=== PATIENT | female | born 1965 | race Caucasian/White ===

== ENCOUNTER → 2018-03-14 08:25 | Outpatient (CLI) | payer OTHER, SELFPAY ==
--- NOTE | 2018-03-14 | DI.US.S_ITS ---
PROCEDURE: US ABDOMEN COMPLETE INDICATIONS: RIGHT UPPER QUADRANT PAIN TECHNIQUE: Real-time scanning was performed of the abdominal and retroperitoneal organs, with image documentation. COMPARISON: None. FINDINGS: Liver: The liver is mildly enlarged with increased echogenicity. Gallbladder: Gallbladder demonstrates multiple mobile areas of increased echogenicity without wall thickening. Biliary ducts: Intrahepatic bile ducts are non-dilated. Extrahepatic bile duct caliber measures 4.8 mm. Normal is 6-7 mm or less in diameter, or 10 mm or less post-cholecystectomy. Pancreas: Visualized portions of the pancreas are sonographically normal. Spleen: Spleen is normal in size and homogeneous in echotexture. Kidneys: Kidneys are normal in size and echotexture. Right kidney measures 11.3 cm long; left kidney measures 11.3 cm long. No hydronephrosis or nephrolithiasis. No solid masses. Aorta: Visualized aorta is normal in caliber at less than 3 cm. Iliacs: Proximal common iliac arteries are not well seen IVC: Intrahepatic inferior vena cava is patent. Miscellaneous: No free abdominal fluid. IMPRESSION: 1. Hepatomegaly with steatosis. 2. Cholelithiasis without imaging evidence of cholecystitis. Dictated by: Marisela Baltazar M.D. on 03/14/2018 at 14:38 Approved by: Marisela Baltazar M.D. on 03/14/2018 at 14:46
[2018-03-14 10:20] LABS: Add Manual Diff / Slide Review NO; Basophils Percent Auto 0.9 % (0-2); Eosinophils Percent Auto 2.3 % (2-4); Hematocrit 38.9 % (36-46); Hemoglobin 12.9 g/dL (12.0-16.0); Lymphocytes Percent Auto 31.2 % (25-40); Mean Corpuscular HGB Conc 33.2 % (30-36); Mean Corpuscular Hemoglobin 27.2 PG (26-34); Mean Corpuscular Volume 82.1 fL (80-100); Monocytes Percent Auto 7.9 % (3-14); Neutrophils Absolute Auto 4000 /uL (3000-5900); Neutrophils Percent Auto 57.7 % (50-75); Platelet Count 261 X10^3/uL (150-400); Red Blood Cell Count 4.74 X10^6/uL (4.0-5.2); Red Cell Distribution Width 14.3 % (11.6-14.8); White Blood Cell Count 6.9 X10^3/uL (4.5-11.0)
[2018-03-14 11:22] LABS: Alanine Aminotransferase 41 IU/L (9-52); Albumin 4.3 g/dL (3.5-5.0); Albumin Globulin Ratio 1.3 (1.0-2.8); Alkaline Phosphatase 81 U/L (38-126); Aspartate Aminotransferase 30 IU/L (14-36); Bilirubin Total 0.5 mg/dL (0.2-1.3); Blood Urea Nitrogen 12 mg/dL (7-17); Calcium 9.4 mg/dL (8.4-10.2); Carbon Dioxide 31 mmol/L (22-32); Chloride 103 mmol/L (98-107); Cholesterol 249 mg/dL (140-199); Estimated Glomerular Filt Rate > 60.0 mL/min (>60); Globulin 3.2 g/dL (1.7-4.1); Glucose 123 mg/dL (70-100); HDL Cholesterol 43 mg/dL (40-60); HEMOLYSIS < 15 (0-50); LDL Cholesterol Calculated 146 mg/dL (<100); Lipase 137 U/L (23-300); Potassium 4.6 mmol/L (3.4-5.1); Sodium 146 mmol/L (137-145); Total Protein 7.5 g/dL (6.3-8.2); Triglycerides 300 mg/dL (35-150)
[2018-03-14 11:31] LABS: Hemoglobin A1C% w Est Avg Glu 6.9 % (4.0-6.0)
== END ==
PROVIDERS: PCP Family Medicine; Visit Provider Nurse Practitioner Family
DX: K76.0 Fatty (change of) liver, not elsewhere classified (principal); R10.11 Right upper quadrant pain; R73.03 Prediabetes; E78.5 Hyperlipidemia, unspecified
CPT/HCPCS: 36415; 76700; 80053; 80061; 83036; 83690; 85025

== ENCOUNTER → 2018-04-08 11:53 | Outpatient (CLI) | payer OTHER, SELFPAY ==
--- NOTE | 2018-04-08 15:37 | DIET.PN ---
Diabetes Intake: Initial Assessment Assess: 52 YOF referred for type 2 diabetes. Pt is newly diagnosed. States she never had a problem with weight, therefore never learned how to incorporate healthy nutritional habits. It was after her first she began experiencing weight and other health issues. She also believes her habits have led to difficulty sleeping and chronic fatigue. Complains of gluten sensitivity. She has not been monitoring BG. Labs: Per pt report: A1c: 6.9 Meds: metformin 1500 mg BID, working up to 2000mg Diet: per 24 hr recall: no specific dietary habits. Eats anything Wt: 180# per pt Ht: 64.5? BMI: 30.4 (obese) DX: Altered nutrition related laboratory values related to impaired glucose metabolism, lack of previous exposure to nutrition information as evidenced by pt report, diagnosis of diabetes, previous diet high in refined carbohydrates. Intervention: 1. Completed intake assessment. Discussed barriers to care. 2. Discussed pathophysiology of diabetes. Reviewed A1c and its correlation to blood glucose numbers. Discussed recommended BG ranges. 3. Discussed importance of self-monitoring, how often, and when to check. 4. Reviewed hyper/hypoglycemia and treatment. 5. Reviewed safe disposal of equipment (strip/lancets/insulin needles). 6. Created SMART goals for pt self-care and success. 7. Discussed program curriculum outline based on available referral hours. SMART Goals: 1. Weight loss goal of 140-150 through dietary changes and exercise. 2. A1c goal of 6.5 in next 3 mo through monitoring BG and dietary changes. Monitor/Evaluate: Anticipate excellent compliance. Pt will attend full DSME program ( 15 available hours). Basic Nutrition scheduled for 04/22/18. Initialized on 04/08/18 15:24 - END OF NOTE
== END ==
PROVIDERS: PCP Family Medicine; Visit Provider Nurse Practitioner Family
DX: E11.9 Type 2 diabetes mellitus without complications (principal)
CPT/HCPCS: 97802

== ENCOUNTER 2018-05-18 09:31 | Day surgery (SDC) | payer OTHER, SELFPAY ==
[2018-05-13 12:55] VITALS: BMI 31.7
[2018-05-18] VITALS (8 sets, daily range): BP systolic 117–146; BP diastolic 65–82; PULSE 75–93; RESP 15–23; TEMP 36.1–36.9; O2SAT 92–97; BMI 31.7
--- NOTE | 2018-05-18 | PATH_ITS ---
[facility] Accession Number: [id number] . 01 Material submitted: . GALLBLADDER . 02 Diagnosis: Gallbladder, Cholecystectomy: Mild chronic cholecystitis with cholelithiasis. Negative for dysplasia or malignancy. I/05/20/2018 . 02 Electronically signed: . Justino Burch MD, PhD, Pathologist NPI- [id number] . 01 Gross description: . Received in formalin labeled Asha Lott, gallbladder is a 7.0 x 3.0 x 2.5 cm gallbladder. The serosa is green-blue wrinkled and is received disrupted in the center. Opening reveals abundant green-black viscous bile and a velvety black mucosa. In the lumen are multiple multifaceted green calculi averaging 0.5 cm in greatest dimension. There is also a small amount of green viscous bile. The wall averages 0.1 cm in thickness. There are a few yellow specks on the mucosal surface. Cp Bleacher Operator sections are submitted as A1 to include the cystic duct margin. A1 has three pieces. (SB:[id number]) /[facility] . 02 Pathologist provided ICD-10: K80.60 . 02 CPT . 316378 Performed at: 01 [facility] [address], [place], [place] [id number] MD Yuniel Gardiner MD Phone: [phone] Performed at: [address] [facility] [address] [place], [place] [id number] MD Mary Jane Alexandra MD Phone: [phone]
[2018-05-18] MEDS: LACTATED RINGERS 1,000 ML 42 ML IV (09:49)
[2018-05-18] MEDS: CEFAZOLIN 2 GM/100 ML FROZ.PIGGY IV (10:10)
--- NOTE | 2018-05-18 10:18 | P.HP_ITS ---
History of Present Illness Date Patient Seen: 05/18/18 Time Patient Seen: 10:17 Chief complaint: [id number] Narrative: Very pleasant 52-year-old lady here for laparoscopic cholecystectomy. She has symptomatic cholelithiasis. She denies any new symptoms. She denies any recent sick contacts. Patient History Medical History Anxiety (Acute) Constipation (Acute) Elevated cholesterol (Acute) PVCs (premature ventricular contractions) (Acute) Palpitations (Acute) Type 2 diabetes mellitus (Acute) Family & Social History Family History: Reviewed 05/18/18 by Christy Prescott MD Social History: household members spouse,children Tobacco & Substance use: Smoking Status Never smoker alcohol intake current Substance Use Type marijuana Meds Home Medications Medication Instructions Recorded Confirmed Type [ CONTROL] #0 10/26/10 04/12/18 History venlafaxine ER 150 mg 150 mg PO DAILY 04/12/18 05/13/18 History capsule,extended release 24 hr aripiprazole 2 mg tablet 2 mg PO DAILY 04/27/18 05/13/18 History metformin ER 1,000 mg 2,000 mg PO BID tab 04/27/18 05/18/18 History tablet,extended release 24hr omeprazole 20 mg tablet,delayed 20 mg PO DAILY 04/27/18 05/13/18 History release Allergies Allergy/AdvReac Type Severity Reaction Status Date / Time adhesive AdvReac Mild Rash Verified 04/12/18 10:12 Review of Systems Review of Systems All systems reviewed & are unremarkable except as noted in HPI and below Exam Vital Signs (past 8 hours): - 05/18/18 09:42 Temperature 97.0 F L Pulse Rate 93 H Respiratory Rate 16 Blood Pressure 146/82 H Pulse Oximetry 97 Oxygen Delivery Method Room Air Narrative Exam Narrative: Very pleasant 52-year-old lady in no distress HEENT: Normocephalic and atraumatic, pupils equal round reactive to light accommodation with anicteric sclera. Lungs: Clear to auscultation bilaterally Heart: Regular rate and rhythm Abdomen: Soft, tender to palpation the right upper quadrant without rebound or guarding. No peritoneal signs Extremities: Warm and well perfused Objective Labs Labs: [address] [address] Ultrasound Report Signed Patient: Asha Lott MR#: [id number] : 1965 Acct:[id number] Age/Sex: 52 / F Date of Service: 03/14/18 Loc: US Accession Number: [id number] Procedure: US abdomen complete Ordering Provider: Nuria Cordova PROCEDURE: US ABDOMEN COMPLETE INDICATIONS: RIGHT UPPER QUADRANT PAIN TECHNIQUE: Real-time scanning was performed of the abdominal and retroperitoneal organs, with image documentation. COMPARISON: None. FINDINGS: Liver: The liver is mildly enlarged with increased echogenicity. Gallbladder: Gallbladder demonstrates multiple mobile areas of increased echogenicity without wall thickening. Biliary ducts: Intrahepatic bile ducts are non-dilated. Extrahepatic bile duct caliber measures 4.8 mm. Normal is 6-7 mm or less in diameter, or 10 mm or less post-cholecystectomy. Pancreas: Visualized portions of the pancreas are sonographically normal. Spleen: Spleen is normal in size and homogeneous in echotexture. Kidneys: Kidneys are normal in size and echotexture. Right kidney measures 11.3 cm long; left kidney measures 11.3 cm long. No hydronephrosis or nephrolithiasis. No solid masses. Aorta: Visualized aorta is normal in caliber at less than 3 cm. Iliacs: Proximal common iliac arteries are not well seen IVC: Intrahepatic inferior vena cava is patent. Miscellaneous: No free abdominal fluid. IMPRESSION: 1. Hepatomegaly with steatosis. 2. Cholelithiasis without imaging evidence of cholecystitis. Dictated by: Marisela Baltazar M.D. on 03/14/2018 at 14:38 Approved by: Marisela Baltazar M.D. on 03/14/2018 at 14:46 Assessment & Plan Plan: Assessment/Plan Narrative: Very pleasant lady with symptomatic cholelithiasis. We discussed the risks and benefits of laparoscopic cholecystectomy and she has expressed a desire to complete the procedure.
--- NOTE | 2018-05-18 10:23 | SUR.OPER ---
Supine on padded OR bed, head on pillow, arms secured on padded arm boards at <90 degrees abduction, legs uncrossed, safety belt at thigh, tape over blanket over lower legs.
[2018-05-18] MEDS: BUPIVACAINE 0.5% (PF) VIAL 30 ML INJ (10:38)
[2018-05-18] MEDS: LIDOCAINE 1% W/EPI INJ 20 ML INJ (10:39)
--- NOTE | 2018-05-18 11:05 | PM.OP.1 ---
Operative Date/Time/Diagnoses Date of procedure: 05/18/18 Time of procedure: 11:05 Pre-op diagnosis: Cholelithiasis Post-op diagnosis: same Procedure & Clinicians Procedure: Laparoscopic cholecystectomy Incisional hernia repair Same procedure as scheduled: Yes Indications: Symptomatic cholelithiasis Incisional hernia Surgeon: Christy Prescott Anesthesia Type: General (Dr. Brown) Operative Notes Findings: 1. 1.5 cm incisional hernia at the umbilicus 2. Gallbladder with a thickened wall and adhesions to the C-loop of the duodenum and the omentum Closure Type: primary Specimen(s): other (Gallbladder in formalin to pathology) Estimated Blood Loss (mL): 20 Procedure in detail: After obtaining informed consent, the patient was brought to the operating room and placed in the supine position on the operating table. Following successful induction of general endotracheal anesthesia, appropriate padding of all bony prominences, and placement of appropriate monitors, the abdomen was prepped and draped in a standard surgical fashion. A timeout was held per SCOAP protocol. Following infiltration with local anesthetic to create a field block, an incision was created superior to the umbilicus and carried down through the skin and subcutaneous tissue. It was at this time that we noted there was a 1 and half to 2 cm hernia at this site. We decided to place our trocar through this herniation and to repair it at the end of the procedure. 2-0 Vicryl retention sutures are placed on either side of the midline and the abdomen was entered under direct vision using a 15 blade scalpel. A 10 mm blunt trocar was placed in the abdominal cavity and it was insufflated to 15 mm of Hg pressure. The patient was placed in reverse Trendelenburg position with the left side rotated toward the floor. A second 5 mm trocar was placed in the midepigastrium and 2 more in the right upper quadrant, again after infiltration with local anesthetic and under direct vision with the camera. The gallbladder was grasped in the fundus and elevated up over the liver. This revealed the cholecysto-hepatoduodenal ligament. The cystic duct and artery were carefully identified with gentle dissection. As we were able to clearly see the structures as well as the junction with the common duct; we elected not to perform a cholangiogram. 3 clips were placed proximally on the cystic duct and one distally. The duct was divided between these clips. 2 clips were placed proximally on the cystic artery and one distally. The artery was divided between these clips. The gallbladder was then liberated from its bed in the liver using Bovie cautery. It was placed in an Endoscopic bag and removed via the umbilical port. The camera was returned to the abdominal cavity and the operative site examined carefully. Hemostasis was obtained with cautery. The abdomen was irrigated copiously with warm saline solution and then aspirated free of all particulate matter and fluid. Trochars were then removed under direct vision and the abdomen desufflated by giving the patient a Valsalva maneuver. The umbilical hernia was closed with interrupted interrupted 0 Prolene sutures. The repair was checked for strength and completeness. Vicryl suture and Monocryl sutures were placed in the skin. The remaining skin incisions were closed with Monocryl suture. All sponge, needle, and instrument counts were correct at the conclusion of the case. The patient was allowed to awaken from anesthesia without difficulty and taken to the post anesthesia care unit in good condition. Complications: other (Did not recognize incisional hernia until the time of operation) Condition: stable Disposition: PACU Plan for aftercare: 1. Discharge to home 2. Follow up with me in 2 weeks
[2018-05-18] MEDS: OXYCODONE/ACETAMINOPHEN 5/325 TABLET 1 TAB PO ×2 (11:21→11:46)
[2018-05-18] MEDS: fentaNYL 100 MCG/2 ML INJ 50 MCG IV ×2 (11:50→11:58)
--- NOTE | 2018-05-18 11:52 | SUR.PHASEII ---
PT TOLERATING PO FLUIDS, C/O INCREASING AMTS OF PAIN, MEDICATED AND WILL CONTINUE TO MONITOR
--- NOTE | 2018-05-18 13:01 | SUR.PHASEII ---
pt left in stable condition alert and oriented x 3 . left in large truck. stepped into truck without difficulty or any signs off pain
== END 2018-05-18 12:40 | disposition home or self-care (01) ==
PROVIDERS: PCP Family Medicine; Visit Provider Surgery
PROC: 0FT44ZZ Resection of Gallbladder, Percutaneous Endoscopic Approach (ICD-10-PCS; CPT 47562; principal; 2018-05-18 09:30)
PROC: (CPT 47562; 2018-05-18 09:30)
DX: K80.20 Calculus of gallbladder without cholecystitis without obstruction (principal); K66.0 Peritoneal adhesions (postprocedural) (postinfection); F41.9 Anxiety disorder, unspecified; E78.00 Pure hypercholesterolemia, unspecified; E11.9 Type 2 diabetes mellitus without complications; Z79.84 Long term (current) use of oral hypoglycemic drugs
CPT/HCPCS: 47562; J0690; J1100; J1885; J2250; J2405; J2704; J3010

== ENCOUNTER → 2019-04-26 07:24 | Outpatient (CLI) | payer OTHER, SELFPAY ==
[2019-04-26 09:15] LABS: Add Manual Diff / Slide Review NO; Basophils Absolute Auto 100 /uL (0-100); Eosinophils Absolute Auto 300 /uL (0-450); Eosinophils Percent Auto 3.1 % (2-4); Hematocrit 39.8 % (36-46); Hemoglobin 13.1 g/dL (12.0-16.0); Lymphocytes Absolute Auto 2200 /uL (1100-4500); Mean Corpuscular HGB Conc 32.9 % (30-36); Mean Corpuscular Hemoglobin 27.6 PG (26-34); Monocytes Absolute Auto 800 /uL (0-900); Monocytes Percent Auto 9.3 % (3-14); Neutrophils Absolute Auto 4900 /uL (1500-7000); Neutrophils Percent Auto 59.6 % (50-75); Platelet Count 308 X10^3/uL (150-400); Red Blood Cell Count 4.74 X10^6/uL (4.0-5.2); Red Cell Distribution Width 14.2 % (11.6-14.8); White Blood Cell Count 8.2 X10^3/uL (4.5-11.0)
[2019-04-26 09:24] LABS: Alanine Aminotransferase 29 IU/L (<35); Albumin 4.3 g/dL (3.5-5.0); Albumin Globulin Ratio 1.5 (1.0-2.8); Alkaline Phosphatase 89 U/L (38-126); Aspartate Aminotransferase 25 IU/L (14-36); BUN Creatinine Ratio 15.6 (6-22); Bilirubin Total 0.3 mg/dL (0.2-1.3); Blood Urea Nitrogen 14 mg/dL (7-17); Calcium 9.3 mg/dL (8.4-10.2); Carbon Dioxide 28 mmol/L (22-32); Chloride 100 mmol/L (98-107); Cholesterol 268 mg/dL (140-199); Estimated Glomerular Filt Rate > 60.0 mL/min (>60); Globulin 2.9 g/dL (1.7-4.1); Glucose 130 mg/dL (70-100); HDL Cholesterol 46 mg/dL (40-60); HEMOLYSIS < 15 (0-50); LDL Cholesterol Calculated 152 mg/dL (<100); Potassium 4.3 mmol/L (3.4-5.1); Sodium 137 mmol/L (137-145); Total Protein 7.2 g/dL (6.3-8.2); Triglycerides 348 mg/dL (35-150)
[2019-04-26 09:55] LABS: Thyroid Stimulating Hormone 3.24 uIU/mL (0.47-4.68)
== END ==
PROVIDERS: Family Provider Family Medicine; PCP Family Medicine; Visit Provider Psychiatry & Neurology Psychiatry
DX: Z79.899 Other long term (current) drug therapy (principal)
CPT/HCPCS: 36415; 80053; 80061; 84443; 85025

== ENCOUNTER → 2019-05-04 07:39 | Outpatient (CLI) | payer OTHER, SELFPAY ==
--- NOTE | 2019-05-04 | DI.US.S_ITS ---
PROCEDURE: US ABDOMEN COMPLETE INDICATIONS: BLOATING TECHNIQUE: Real-time scanning was performed of the abdominal and retroperitoneal organs, with image documentation. COMPARISON: [facility], [place], US ABDOMEN COMPLETE, 03/14/2018, 8:59. FINDINGS: Liver: Liver is diffusely increased in echogenicity. No focal hepatic abnormalities identified. Normal hepatic size. Gallbladder: Surgically absent. Biliary ducts: Intrahepatic bile ducts are non-dilated. Extrahepatic bile duct caliber measures 7.2 mm. Normal is 6-7 mm or less in diameter, or 10 mm or less post-cholecystectomy. Pancreas: Visualized portions of the pancreas are sonographically normal. Spleen: Spleen is normal in size and homogeneous in echotexture. Kidneys: Kidneys are normal in size and echotexture. Right kidney measures 11.4 cm long; left kidney measures 11.9 cm long. No hydronephrosis or nephrolithiasis. No solid masses. Aorta: Visualized aorta is normal in caliber at less than 3 cm. Iliacs: Proximal common iliac arteries are normal in caliber at less than 2.5 cm. IVC: Intrahepatic inferior vena cava is patent. Miscellaneous: No free abdominal fluid. IMPRESSION: 1. Increased hepatic echogenicity noted possibly related to hepatic steatosis but other sources of hepatocellular disease including hepatic cirrhosis cannot be excluded. Recommend clinical correlation. Dictated by: Pedro GREEN Interpreted: Marisela Baltazar MD on 05/04/2019 at 9:09 Approved by: Marisela Baltazar M.D. on 05/05/2019 at 7:06
--- NOTE | 2019-05-04 | DI.US.S_ITS ---
PROCEDURE: US PELVIC COMPLETE INDICATIONS: PELVIC PAIN TECHNIQUE: Real-time scanning was performed of the pelvic organs, with image documentation. Additional endovaginal scanning was necessary due to incomplete visualization of the adnexal and endometrial structures by transabdominal scanning. COMPARISON: [facility], , US ABDOMEN COMPLETE, 05/04/2019, 8:02. FINDINGS: Transabdominal scanning: Limited scanning through the kidneys shows no hydronephrosis. No pathologic free abdominal or pelvic fluid. Submucosal fibroid measuring 1.0 x 0.6 x 0.8 cm. Endovaginal scanning: Uterus: Uterus is normal in size at 7.4 x 4.7 x 6.5 cm. The endometrium measures 5.3 mm in combined thickness. Ovaries: Right ovary not visualized. Normal left ovary measuring 1.4 x 0.9 x 0.7 cm. IMPRESSION: 1.0 cm submucosal fibroid. No source for pelvic pain identified. Dictated by: Pedro GREEN Interpreted: Marisela Baltazar MD on 05/04/2019 at 9:10 Approved by: Marisela Baltazar M.D. on 05/05/2019 at 7:06
== END ==
PROVIDERS: Family Provider Family Medicine; PCP Family Medicine; Visit Provider Nurse Practitioner Family
DX: R10.2 Pelvic and perineal pain (principal); R14.0 Abdominal distension (gaseous)
CPT/HCPCS: 76700; 76830; 76856

== ENCOUNTER → 2019-10-20 11:07 | Outpatient (CLI) | payer OTHER, SELFPAY ==
--- NOTE | 2019-10-20 | DI.US.S_ITS ---
PROCEDURE: US EXTREMELY NONVASC UPPER RT INDICATIONS: SOFT TISSUE MASS TECHNIQUE: Real-time scanning was performed of the area of current reported swelling and tenderness just above the elbow, right arm. COMPARISON: None. FINDINGS: A mass is not seen. Superficial veins are prominent in this patient without focal thrombosis identified. No abnormal fluid collection is found. IMPRESSION: Mildly prominent superficial veins in the area of current clinical concern, without internal thrombosis identified. No mass or fluid collection found. Close clinical followup is recommended and if unusual symptomatology and interval worsening occurs followup by contrast enhanced MR scanning through the area would be recommended. Dictated by: Gary Lombardi M.D. on 10/20/2019 at 12:41 Approved by: Gary Lombardi M.D. on 10/20/2019 at 12:43
== END ==
PROVIDERS: Family Provider Family Medicine; PCP Family Medicine; Referring Provider Family Medicine; Visit Provider Family Medicine
DX: M79.89 Other specified soft tissue disorders (principal)
CPT/HCPCS: 76882

== ENCOUNTER → 2019-11-01 07:13 | Outpatient (CLI) | payer OTHER, SELFPAY ==
--- NOTE | 2019-11-01 | DI.MRI.S_ITS ---
PROCEDURE: MR ELBOW RT WO/W CON INDICATIONS: Soft tissue mass right mass TECHNIQUE: Noncontrast coronal proton density fast spin echo and T2 fast spin echo with fat saturation, coronal T1 spin echo with fat saturation, axial and sagittal T1 spin echo and T2 fast spin echo with fat saturation through the elbow. Post-contrast coronal, axial, and sagittal T1 spin echo with fat saturation through the elbow. COMPARISON: None. FINDINGS: Image quality: Excellent. No discrete soft tissue mass. Within the area marked by a fiducial placed on the skin surface in the area of palpable abnormality, no discrete mass, fluid collection or lymphadenopathy is seen. However, there is a large superficial vessel in this region. Lateral structures: The lateral ulnar collateral ligament and radial collateral ligament both appear intact. The overlying common extensor tendon also appears normal. Medial structures: The ulnar collateral ligament appears intact. The overlying common flexor tendon appears normal. The ulnar nerve appears normal in size and signal within the cubital tunnel. Anterior structures: The biceps and brachialis tendons both appear intact as they insert onto the proximal radius and ulna, respectively. No bicipitoradial bursal fluid. The median and radial neurovascular bundles appear normal; no focal muscle atrophy to suggest nerve impingement. Posterior structures: No olecranon bursal fluid. Mild distal triceps tendinopathy, technically age indeterminate Bone and cartilage: No suspicious osseous enhancement. No bone marrow contusions or fractures. No osteochondral injuries. IMPRESSION: No discrete mass or suspicious enhancement. Underlying the fiducial marker placed in the area of palpable abnormality and clinical concern, there is a large superficial vessel. If there is clinical concern for superficial thrombophlebitis, ultrasound could be performed. Mild distal triceps tendinopathy, age-indeterminate Dictated by: Daniel Sanchez M.D. on 11/01/2019 at 10:45 Approved by: Daniel Sanchez M.D. on 11/01/2019 at 11:05
[2019-11-01 08:10] LABS: Hemoglobin A1C% w Est Avg Glu 7.1 % (4.0-6.0)
[2019-11-01 08:23] LABS: Alanine Aminotransferase 28 IU/L (<35); Albumin Globulin Ratio 1.4 (1.0-2.8); Alkaline Phosphatase 84 U/L (38-126); Aspartate Aminotransferase 27 IU/L (14-36); BUN Creatinine Ratio 16.9 (6-22); Bilirubin Total 0.4 mg/dL (0.2-1.3); Blood Urea Nitrogen 12 mg/dL (7-17); Calcium 9.1 mg/dL (8.4-10.2); Carbon Dioxide 24 mmol/L (22-32); Chloride 102 mmol/L (98-107); Cholesterol 214 mg/dL (140-199); Estimated Glomerular Filt Rate > 60.0 mL/min (>60); Globulin 2.8 g/dL (1.7-4.1); Glucose 135 mg/dL (70-100); HDL Cholesterol 36 mg/dL (40-60); HEMOLYSIS < 15 (0-50); LDL Cholesterol Calculated 121 mg/dL (<100); Potassium 4.9 mmol/L (3.4-5.1); Sodium 136 mmol/L (137-145); Total Protein 6.8 g/dL (6.3-8.2); Triglycerides 286 mg/dL (35-150)
[2019-11-01 08:49] LABS: Thyroid Stimulating Hormone 1.58 uIU/mL (0.47-4.68)
== END ==
PROVIDERS: Psychiatry & Neurology Psychiatry; Family Provider Family Medicine; PCP Family Medicine; Referring Provider Family Medicine; Visit Provider Family Medicine
DX: R22.31 Localized swelling, mass and lump, right upper limb (principal); M67.921 Unspecified disorder of synovium and tendon, right upper arm; Z79.899 Other long term (current) drug therapy
CPT/HCPCS: 36415; 73223; 80053; 80061; 83036; 84443

== ENCOUNTER → 2019-12-01 08:31 | Outpatient (CLI) | payer OTHER, SELFPAY ==
[2019-12-02 09:07] LABS: COVID19 Sendout Not Detected (Not Detect)
== END ==
PROVIDERS: PCP Family Medicine; Visit Provider Physician Assistant
DX: Z01.812 Encounter for preprocedural laboratory examination (principal)
CPT/HCPCS: 87635

== ENCOUNTER 2019-12-04 09:53 | Day surgery (SDC) | payer OTHER, SELFPAY ==
[2019-11-28 15:14] VITALS: BMI 35.0
[2019-12-04] VITALS (10 sets, daily range): BP systolic 108–145; BP diastolic 62–83; PULSE 79–91; RESP 11–24; TEMP 36.1–36.6; O2SAT 91–99; BMI 34.2
--- NOTE | 2019-12-04 | PATH_ITS ---
[facility] Accession Number: [id number] . 01 Material submitted: . arm - RIGHT ARM MASS . 01 Clinical history: . MASS . 01 Diagnosis: Soft Tissue, Right Arm, Excision: Lipoma. [facility] 12/06/2019 1734 Local . 01 Electronically signed: . Naima Garcia MD, Pathologist NPI- [id number] . 01 Gross description: . RIGHT ARM MASS: Received in formalin are multiple fragment of mccoy soft tissue measuring 3.0 x 1.5 x 1.0 cm. Tissue is inked. Specimen is sectioned and submitted in in home sales representative sections in 2 cassettes. /[facility] 12/05/2019 0128 Local . 01 Pathologist provided ICD-10: D17.9 . 01 CPT . 028955 Performed at: 01 [facility] [address], [place], [place] [id number] MD Yuniel Gardiner MD Phone: [phone]
--- NOTE | 2019-12-04 10:33 | PM.PREOP ---
Pre-operative Note COVID-19 COVID-19 status: Negative Result date/Date tested (Pos, Neg/Pending): 12/01/19 Interval Note History & Physical reviewed/Exam performed by Physician: Yes Changes to H&P: No
[2019-12-04] MEDS: LACTATED RINGERS 1,000 ML 42 ML IV (10:36)
[2019-12-04] MEDS: CEFAZOLIN 2 GM/100 ML FROZ.PIGGY IV (10:52)
[2019-12-04] MEDS: fentaNYL 100 MCG/2 ML INJ IV ×2 (12:08→12:18)
[2019-12-04] MEDS: OXYCODONE/ACETAMINOPHEN 5/325 TABLET 1 TAB PO ×2 (12:30→13:02)
--- NOTE | 2019-12-04 12:46 | PM.OP.1 ---
Operative Date/Time/Diagnoses Date of procedure: 12/04/19 Time of procedure: 12:18 Pre-op diagnosis: Mass right arm probable lipoma Post-op diagnosis: same Procedure & Clinicians Procedure: Excision Same procedure as scheduled: Yes Indications: Growing mass right arm. Concerned that is causing local pain Surgeon: Steve Smallwood Click Yes if Unassisted: Yes Anesthesia Type: General Operative Notes Findings: Fatty tissue in region. Subfascial intramuscular fat. Closure Type: primary Specimen(s): other (Portions of fat) Prosthetic devices, grafts, tissues, transplants, or devices: None Estimated Blood Loss (mL): 15 Blood products transfused: none Procedure in detail: Patient was placed supine on the operating room table with the right arm extended and she underwent LMA general anesthesia. She was prepped and draped in the usual fashion. A transverse incision was made overlying this ill-defined mass. It was carried down in the subcu. There were large globules of fat but no distinct lesion like a typical lipoma. This was removed down to muscle fascia. The muscle fascia was opened and there was also fat beneath it. This however interdigitated with the muscle and therefore was not removed as it too was a flat but ill-defined area. I left the fascia which was a small defect open so that if it was causing compression it would no longer do so. The subcu was closed with interrupted 3 0 Vicryl and the skin was closed with vertical mattress for nylon. Dressing was applied the patient was awakened extubated taken to recovery area in good condition Complications: none Post-operative Condition: stable Disposition: PACU
--- NOTE | 2019-12-04 13:33 | SUR.PHASEII ---
came in, d/c instructions discussed. Pt medicated with 2nd pain med see EMAR. Pt left when ready and left in stable condition.
== END 2019-12-04 13:20 | disposition home or self-care (01) ==
PROVIDERS: PCP Family Medicine; Referring Provider Specialist; Visit Provider Specialist
PROC: (CPT 24076; principal; 2019-12-04 11:15)
DX: D17.21 Benign lipomatous neoplasm of skin and subcutaneous tissue of right arm (principal); E66.9 Obesity, unspecified; I10 Essential (primary) hypertension; E11.9 Type 2 diabetes mellitus without complications; Z79.84 Long term (current) use of oral hypoglycemic drugs
CPT/HCPCS: 24076; J0690; J1100; J2405; J2704; J3010

== ENCOUNTER → 2020-01-01 13:31 | Outpatient (CLI) | payer OTHER, SELFPAY ==
--- NOTE | 2020-01-01 | DI.MG.S_ITS ---
BILATERAL DIGITAL SCREENING MAMMOGRAM 3D/2D WITH CAD: 01/01/2020 CLINICAL: Routine screening. Comparison is made to exams dated: 03/31/2017 mammogram, 03/11/2012 mammogram, and 06/04/2010 mammogram - [facility]. The tissue of both breasts is heterogeneously dense. This may lower the sensitivity of mammography. Current study was also evaluated with a Computer Aided Detection (CAD) system. There is a possible 0.6 cm oval equal density focal asymmetry in the right breast at 2 o'clock middle depth. No other significant masses, calcifications, or other findings are seen in either breast. IMPRESSION: INCOMPLETE: NEEDS ADDITIONAL IMAGING EVALUATION The possible 0.6 cm oval equal density focal asymmetry in the right breast is indeterminate. Additional views with possible ultrasound are recommended. This exam was interpreted at Station ID: [id number]. NOTE: For mammograms, a report in lay terms will be sent to the patient. Approximately 15% of breast malignancies will not be visualized mammographically. In the management of a palpable breast mass, a negative mammogram must not discourage biopsy of a clinically suspicious lesion. Electronically Signed By: Gokul Lam M.D. aty/:01/01/2020 17:25:29 letter sent: Additional Imaging Needed ACR BI-RADS Category 0: Incomplete [id number]
== END ==
PROVIDERS: PCP Family Medicine; Referring Provider Family Medicine; Visit Provider Family Medicine
DX: Z12.31 Encounter for screening mammogram for malignant neoplasm of breast (principal)
CPT/HCPCS: 77063; 77067

== ENCOUNTER → 2020-02-05 15:00 | Outpatient (CLI) | payer OTHER, SELFPAY ==
--- NOTE | 2020-02-05 15:09 | DI.MG.S_ITS ---
Patient Name: AMOS PICKERING date: 1965 Sex: F Attending Physician: Consuelo Indications: Date: 02/05/2020 15:02 At the request of: ALEJANDRA LUA Procedure: MM special view RT UNILATERAL RIGHT DIGITAL DIAGNOSTIC MAMMOGRAM 3D/2D WITH ADDITIONAL VIEWS: 02/05/2020 CLINICAL: Additional evaluation requested from prior study. Comparison is made to exams dated: 01/01/2020 mammogram, 03/31/2017 mammogram, and 03/11/2012 mammogram - [facility]. The tissue of right breast is heterogeneously dense. This may lower the sensitivity of mammography. The asymmetry in the right breast at 2 o'clock middle depth is not seen in additional views. No other significant masses or calcifications are seen in the breast. IMPRESSION: BENIGN The asymmetry in the right breast seen on the screening mammogram likely respresents superimposed fibroglandular tissue and is benign. There is no mammographic evidence of malignancy. A 1 year screening mammogram is recommended. This exam was interpreted at Station ID: [id number]. NOTE: For mammograms, a report in lay terms will be sent to the patient. Approximately 15% of breast malignancies will not be visualized mammographically. In the management of a palpable breast mass, a negative mammogram must not discourage biopsy of a clinically suspicious lesion. Electronically Signed By: Trang gomez/:02/05/2020 15:25:24 letter sent: Normal Exam ACR BI-RADS Category 2: Benign Finding(s) 3342F
== END ==
PROVIDERS: PCP Family Medicine; Referring Provider Family Medicine; Visit Provider Family Medicine
DX: R92.8 Other abnormal and inconclusive findings on diagnostic imaging of breast (principal)
CPT/HCPCS: 77065; G0279

== ENCOUNTER → 2021-12-01 10:11 | Outpatient (CLI) | payer OTHER, SELFPAY ==
[2021-12-01 11:30] LABS: Add Manual Diff / Slide Review NO; Basophils Absolute Auto 100 /uL (0-100); Basophils Percent Auto 0.6 % (0-2); Eosinophils Absolute Auto 400 /uL (0-450); Eosinophils Percent Auto 4.7 % (2-4); Hematocrit 39.4 % (36-46); Hemoglobin 13.6 g/dL (12.0-16.0); Lymphocytes Absolute Auto 1800 /uL (1100-4500); Mean Corpuscular HGB Conc 34.6 % (30-36); Mean Corpuscular Hemoglobin 28.3 PG (26-34); Mean Corpuscular Volume 81.8 fL (80-100); Monocytes Absolute Auto 600 /uL (0-900); Monocytes Percent Auto 6.6 % (3-14); Neutrophils Absolute Auto 6000 /uL (1500-7000); Neutrophils Percent Auto 68.1 % (50-75); Platelet Count 297 X10^3/uL (150-400); Red Blood Cell Count 4.81 X10^6/uL (4.0-5.2); Red Cell Distribution Width 14.9 % (11.6-14.8); White Blood Cell Count 8.8 X10^3/uL (4.5-11.0)
[2021-12-01 11:41] LABS: Alanine Aminotransferase 22 IU/L (<35); Albumin 4.5 g/dL (3.5-5.0); Albumin Globulin Ratio 1.4 (1.0-2.8); Alkaline Phosphatase 92 U/L (38-126); Aspartate Aminotransferase 24 IU/L (14-36); BUN Creatinine Ratio 16.7 (6-22); Bilirubin Total 0.5 mg/dL (0.2-1.3); Blood Urea Nitrogen 15 mg/dL (7-17); Calcium 8.9 mg/dL (8.4-10.2); Carbon Dioxide 23 mmol/L (22-32); Chloride 101 mmol/L (98-107); Cholesterol 260 mg/dL (140-199); Estimated Glomerular Filt Rate > 60 mL/min (>60); Globulin 3.3 g/dL (1.7-4.1); Glucose 113 mg/dL (70-100); HDL Cholesterol 46 mg/dL (40-60); HEMOLYSIS < 15 (0-50); LDL Cholesterol Calculated 150 mg/dL (<100); Potassium 4.3 mmol/L (3.4-5.1); Sodium 137 mmol/L (137-145); Total Protein 7.8 g/dL (6.3-8.2); Triglycerides 319 mg/dL (35-150)
[2021-12-01 12:20] LABS: Thyroid Stimulating Hormone 1.56 uIU/mL (0.47-4.68)
[2021-12-01 13:50] LABS: Hemoglobin A1C% w Est Avg Glu 6.4 % (4.0-6.0)
== END ==
PROVIDERS: PCP Family Medicine; Referring Provider Psychiatry & Neurology Psychiatry; Visit Provider Psychiatry & Neurology Psychiatry
DX: Z79.899 Other long term (current) drug therapy (principal)
CPT/HCPCS: 36415; 80053; 80061; 83036; 84443; 85025

== ENCOUNTER → 2022-03-11 13:15 | Outpatient (CLI) | payer OTHER, SELFPAY ==
--- NOTE | 2022-03-11 | DI.MG.S_ITS ---
BILATERAL DIGITAL SCREENING MAMMOGRAM 3D/2D WITH CAD: 03/11/2022 CLINICAL: Routine screening. Comparison is made to exams dated: 01/01/2020 mammogram, 03/31/2017 mammogram, 03/11/2012 mammogram, and 02/05/2020 mammogram - [facility]. Both breasts are heterogeneously dense, which may obscure small masses (category c / 51-75% glandular tissue). Current study was also evaluated with a Computer Aided Detection (CAD) system. No significant masses, calcifications, or other findings are seen in either breast. There has been no significant interval change. IMPRESSION: NEGATIVE There is no mammographic evidence of malignancy. A 1 year screening mammogram is recommended. Based on the Tyrer Cuzick model (a risk assessment model) the patient's lifetime risk is 10.1% and her 10 year risk is 3.1%. According to the ACR, ACS, and NCCN guidelines, an annual breast MRI exam along with mammogram is recommended if the patient's lifetime risk is 20% or greater. This exam was interpreted at Station ID: [id number]. NOTE: For mammograms, a report in lay terms will be sent to the patient. Approximately 15% of breast malignancies will not be visualized mammographically. In the management of a palpable breast mass, a negative mammogram must not discourage biopsy of a clinically suspicious lesion. Electronically Signed By: Geovani cummins/cisco:03/13/2022 09:47:00 letter sent: Normal Exam ACR BI-RADS Category 1: Negative 3341F
== END ==
PROVIDERS: PCP Family Medicine; Referring Provider Family Medicine; Visit Provider Family Medicine
DX: Z12.31 Encounter for screening mammogram for malignant neoplasm of breast (principal)
CPT/HCPCS: 77063; 77067

== ENCOUNTER → 2023-07-13 15:45 | Outpatient (CLI) | payer OTHER, SELFPAY ==
--- NOTE | 2023-07-13 | DI.MG.S_ITS ---
BILATERAL DIGITAL SCREENING MAMMOGRAM 3D/2D WITH CAD: 07/13/2023 CLINICAL: Routine screening. Comparison is made to exams dated: 03/11/2022 mammogram, 02/05/2020 mammogram, 01/01/2020 mammogram, and 03/31/2017 mammogram - [facility]. Both breasts are heterogeneously dense, which may obscure small masses (category c / 51-75% glandular tissue). Current study was also evaluated with a Computer Aided Detection (CAD) system. There is a focal asymmetry in the left breast at 11 o'clock middle depth. No other significant masses, calcifications, or other findings are seen in either breast. IMPRESSION: INCOMPLETE: NEEDS ADDITIONAL IMAGING EVALUATION The focal asymmetry in the left breast is indeterminate. Additional views with possible ultrasound are recommended. Based on the Tyrer Cuzick model (a risk assessment model) the patient's lifetime risk is 13.6% and her 10 year risk is 4.5%. According to the ACR, ACS, and NCCN guidelines, an annual breast MRI exam along with mammogram is recommended if the patient's lifetime risk is 20% or greater. This exam was interpreted at Station ID: [id number]. NOTE: For mammograms, a report in lay terms will be sent to the patient. Approximately 15% of breast malignancies will not be visualized mammographically. In the management of a palpable breast mass, a negative mammogram must not discourage biopsy of a clinically suspicious lesion. Electronically Signed By: Trang gomez/cisco:07/13/2023 17:00:48 letter sent: Additional Imaging Needed ACR BI-RADS Category 0: Incomplete 3340F
== END ==
LOC: MAMMO 15:46
PROVIDERS: PCP Family Medicine; Referring Provider Family Medicine; Visit Provider Family Medicine
DX: Z12.31 Encounter for screening mammogram for malignant neoplasm of breast (principal); R92.333 Mammographic heterogeneous density, bilateral breasts
CPT/HCPCS: 77063; 77067

== ENCOUNTER → 2023-08-05 12:07 | Outpatient (CLI) | payer OTHER, SELFPAY ==
--- NOTE | 2023-08-05 12:09 | DI.US.S_ITS ---
LIMITED ULTRASOUND OF LEFT BREAST: 08/05/2023 CLINICAL: Patient returns today to evaluate a focal asymmetry in the left breast. Comparison is made to exams dated: 08/05/2023 mammogram, 07/13/2023 mammogram, 03/11/2022 mammogram, 01/01/2020 mammogram, 03/31/2017 mammogram, and 03/11/2012 mammogram - [facility]. Color flow and real-time ultrasound of the left breast 12 o'clock region were performed. Mejía scale images of the real-time examination were reviewed. There is a 0.7 cm x 0.4 cm x 0.3 cm oval mass with a circumscribed margin in the left breast at 12 o'clock, 9 cm from the nipple. This oval mass is hypoechoic. This mass may correspond to the mammographic mass. No abnormal lymph nodes are seen in the axilla. IMPRESSION: SUSPICIOUS OF MALIGNANCY Left breast 0.7 cm oval mass at 12 o'clock at distance of 9 cm from the nipple. Finding is suspicious. Recommend ultrasound guided core biopsy with attention to clip placement on the post biopsy mammogram. Findings and recommendations were discussed with the patient by Dr. Rendon at the time of imaging completion. This exam was interpreted at Station ID: [id number]. Electronically Signed By: Jennifer Mccord M.D., PH.D eb/:08/05/2023 13:29:35 letter sent: Biopsy Required Ultrasound BI-RADS: 4 Suspicious for malignancy
--- NOTE | 2023-08-05 12:09 | DI.MG.S_ITS ---
UNILATERAL LEFT DIGITAL DIAGNOSTIC MAMMOGRAM 3D/2D WITH ADDITIONAL VIEWS: 08/05/2023 CLINICAL: Additional evaluation requested from prior study. Comparison is made to exams dated: 07/13/2023 mammogram, 03/11/2022 mammogram, 02/05/2020 mammogram, 01/01/2020 mammogram, and 03/31/2017 mammogram - [facility]. The left breast is heterogeneously dense, which may obscure small masses (category c / 51-75% glandular tissue). The previously described focal asymmetry in the left breast on recent screening mammogram did not persist with additional imaging and is consistent with superimposition of normal breast tissue. There is a new 0.6 cm oval mass with a circumscribed margin in the left breast at 12 o'clock posterior depth. No other significant masses or calcifications are seen in the breast. IMPRESSION: INCOMPLETE: NEEDS ADDITIONAL IMAGING EVALUATION Left breast 0.6 cm oval mass at 12 o'clock posterior depth. An ultrasound is recommended for further evaluation and is scheduled to immediately follow this examination. Based on the Tyrer Cuzick model (a risk assessment model) the patient's lifetime risk is 13.6% and her 10 year risk is 4.5%. According to the ACR, ACS, and NCCN guidelines, an annual breast MRI exam along with mammogram is recommended if the patient's lifetime risk is 20% or greater. This exam was interpreted at Station ID: [id number]. NOTE: For mammograms, a report in lay terms will be sent to the patient. Approximately 15% of breast malignancies will not be visualized mammographically. In the management of a palpable breast mass, a negative mammogram must not discourage biopsy of a clinically suspicious lesion. Electronically Signed By: Jennifer Mccord M.D., PH.D eb/:08/05/2023 13:26:03 ACR BI-RADS Category 0: Incomplete 3340F
== END ==
LOC: MAMMO 12:08
PROVIDERS: PCP Family Medicine; Referring Provider Family Medicine; Visit Provider Family Medicine
DX: R92.8 Other abnormal and inconclusive findings on diagnostic imaging of breast (principal); N63.25 Unspecified lump in the left breast, overlapping quadrants; N64.89 Other specified disorders of breast; R92.332 Mammographic heterogeneous density, left breast
CPT/HCPCS: 76642; 77065; G0279

== ENCOUNTER → 2023-08-26 14:01 | Outpatient (CLI) | payer OTHER, SELFPAY ==
--- NOTE | 2023-08-26 | PATH_ITS ---
[facility] Accession Number: [id number] No. of containers..01 Tissue . 01 Material submitted: . breast - LEFT BREAST MASS 12:00 9CMFN . 01 Clinical history: . LEFT BREAST MASS 12:00 9CMFN . 01 Diagnosis: LEFT BREAST MASS, 12 O'CLOCK, 9 CM FROM NIPPLE, NEEDLE CORE BIOPSIES: Benign breast parenchyma with fibroadenomatous and fibrocystic changes, and patchy adenosis. Negative for atypical hyperplasia, in situ or invasive carcinoma. MRV 08/27/2023 1531 Local . 01 Comment: Correlation with clinical and imaging findings to determine if the histologic features are denial management representative of the lesion is recommended. . As part of routine supervisor quality control, Dr. Cordero has reviewed this case and agrees with the interpretation above. The findings in this case were reported to Dr. Cordero by Dr. Burch on 08/27/2023 at 3:20 p.m. . 01 Electronically signed: . Justino Burch MD, PhD, Pathologist NPI- [id number] . 01 Gross description: . Received one formalin-filled container, labeled with the patient's name and designated left breast mass 12 o'clock 9 cm FN, specimen is received in a plastic filter in container, sample loose in container, and consists of multiple yellow-mccoy pieces of soft tissue which range in size from less than 0.1 cm to 1.2 x 0.2 x 0.2 cm. All fragments are totally submitted in two cassettes. Possible collection date and time per requisition: 2023 at 1523. Total fixation time approximately 11 hours. ([facility]:[id number]) /MRV 08/27/2023 0828 Local . 01 Pathologist provided ICD-10: N63.20, N60.22 . 01 CPT . 201630 Performed at: [facility] [address] [place] [address], [place], [place] [id number] MD Yuniel Gardiner MD Phone: [phone]
--- NOTE | 2023-08-26 | DI.MG.S_ITS ---
UNILATERAL LEFT DIGITAL DIAGNOSTIC MAMMOGRAM - LEFT BREAST POST-PROCEDURE IMAGING FOR MARKER PLACEMENT: 08/26/2023 CLINICAL: Post left breast ultrasound biopsy, clip placement imaging. Comparison is made to exams dated: 08/05/2023 mammogram, 07/13/2023 mammogram, 03/11/2022 mammogram, 02/05/2020 mammogram, and 01/01/2020 mammogram - [facility]. The left breast is heterogeneously dense, which may obscure small masses (category c / 51-75% glandular tissue). A biopsy clip is noted at the biopsy site in the area of 12:00.. IMPRESSION: POST PROCEDURE MAMMOGRAM FOR MARKER PLACEMENT The biopsy clip is at the biopsy site. Based on the Tyrer Cuzick model (a risk assessment model) the patient's lifetime risk is 13.6% and her 10 year risk is 4.5%. According to the ACR, ACS, and NCCN guidelines, an annual breast MRI exam along with mammogram is recommended if the patient's lifetime risk is 20% or greater. This exam was interpreted at Station ID: [id number]. NOTE: For mammograms, a report in lay terms will be sent to the patient. Approximately 15% of breast malignancies will not be visualized mammographically. In the management of a palpable breast mass, a negative mammogram must not discourage biopsy of a clinically suspicious lesion. Electronically Signed By: Charis guerrero/apolinarrad:08/26/2023 17:07:34 ACR BI-RADS Category Post-procedure mammogram for marker placement
--- NOTE | 2023-08-26 14:02 | DI.US.S_ITS ---
ULTRASOUND GUIDED BIOPSY LEFT BREAST USING VACUUM DEVICE WITH POST MAMMOGRAPHIC AND ULTRASOUND IMAGIN08/26/2023 CLINICAL: Left breast mass. PATIENT CONSENT: Risks (minor bleeding, infection, vasovagal reaction and repeat procedure), benefits and alternatives were explained to the patient and written informed consent was obtained. Correlation is made to exams dated: 08/05/2023 ultrasound, 08/05/2023 mammogram, 07/13/2023 mammogram, and 03/11/2022 mammogram - [facility]. An ultrasound guided biopsy using real-time ultrasound was performed for the 0.6 cm x 0.5 cm x 0.3 cm oval mass located in the left breast at 12 o'clock posterior depth 9 cm from the nipple. This was described on the previous ultrasound report. The skin was prepped in the usual manner. Local anesthetic was administered to the access site. The abnormality was approached from the lateral aspect. A 13 gauge biopsy needle was placed adjacent to the abnormality under ultrasound guidance. Once the needle was documented to be in the correct location, five specimens were obtained using the Mammotome biopsy system. Post procedure mammographic and ultrasound imaging demonstrates the vision clip at the targeted area. The specimens were sent to the laboratory for pathological analysis. IMPRESSION: ULTRASOUND GUIDED BIOPSY BENIGN Ultrasound guided biopsy of the 0.6 cm x 0.5 cm x 0.3 cm mass in the left breast posterior depth was successful. Pathology indicates benign fibrocystic changes (FC). Pathology results are concordant with imaging findings. A follow-up mammogram in 6 months is recommended to demonstrate stability. This exam was interpreted at Station ID: [id number]. Charis Rendon M.D. fx,[facility]/:08/31/2023 09:36:52
== END ==
PROVIDERS: PCP Family Medicine; Referring Provider Family Medicine; Visit Provider Family Medicine
DX: R92.8 Other abnormal and inconclusive findings on diagnostic imaging of breast (principal); N60.12 Diffuse cystic mastopathy of left breast; N63.25 Unspecified lump in the left breast, overlapping quadrants; R92.332 Mammographic heterogeneous density, left breast
CPT/HCPCS: 19083; 77065

== ENCOUNTER → 2024-06-01 11:52 | Outpatient (CLI) | payer OTHER, SELFPAY ==
--- NOTE | 2024-06-01 | DI.MG.S_ITS ---
BILATERAL DIGITAL DIAGNOSTIC MAMMOGRAM 3D/2D: 06/01/2024 CLINICAL: Short term follow up of the left breast, due for bilateral imaging. Comparison is made to exams dated: 08/26/2023 mammogram, 07/13/2023 mammogram, 03/11/2022 mammogram, and 01/01/2020 mammogram - [facility]. The breasts are heterogeneously dense, which may obscure small masses (category c / 51-75% glandular tissue). There is a low density focal asymmetry in the left breast at 12 o'clock posterior depth. This is not significantly changed and is in close vicinity to the biopsy marker from previous ultrasound guided biopsy with question of possible correlation between mammographic and sonographic target for biopsy. Biopsy marker is approximately 1.5 cm anterior to the previously described focal asymmetry on the lateral view. No other significant masses, calcifications, or other findings are seen in either breast. IMPRESSION: BENIGN There is no mammographic evidence of malignancy. Biopsy marker is approximately 1.5cm anterior to the focal asymmetry which likely correlated with target for ultrasound guided biopsy. However, a conservative follow-up bilateral mammogram with possible left ultrasound in 12 months is recommended to confirm exterminator termite stability. Findings and recommendations were conveyed to the patient during today's evaluation. Based on the Tyrer Cuzick model (a risk assessment model) the patient's lifetime risk is 13.4% and her 10 year risk is 4.7%. According to the ACR, ACS, and NCCN guidelines, an annual breast MRI exam along with mammogram is recommended if the patient's lifetime risk is 20% or greater. This exam was interpreted at Station ID: [id number]. NOTE: For mammograms, a report in lay terms will be sent to the patient. Approximately 15% of breast malignancies will not be visualized mammographically. In the management of a palpable breast mass, a negative mammogram must not discourage biopsy of a clinically suspicious lesion. Electronically Signed By: Gokul Lam M.D. aty/:06/01/2024 13:06:59 letter sent: Followup Recommended ACR BI-RADS Category 2: Benign
== END ==
PROVIDERS: PCP Family Medicine; Referring Provider Family Medicine; Visit Provider Family Medicine
DX: N63.20 Unspecified lump in the left breast, unspecified quadrant (principal); R92.8 Other abnormal and inconclusive findings on diagnostic imaging of breast; R92.333 Mammographic heterogeneous density, bilateral breasts
CPT/HCPCS: 77066; G0279

== ENCOUNTER → 2024-11-01 08:13 | Outpatient (CLI) | payer OTHER, SELFPAY ==
--- NOTE | 2024-11-01 08:14 | DI.US.S_ITS ---
PROCEDURE: US PELVIC COMPLETE INDICATIONS: MENOPAUSAL AND FEMALE CLIMACTERIC STATES TECHNIQUE: Real-time scanning was performed of the pelvic organs, with image documentation. Additional endovaginal scanning was necessary due to incomplete visualization of the adnexal and endometrial structures by transabdominal scanning. COMPARISON: [facility], , US PELVIC COMPLETE, 05/04/2019, 8:17. FINDINGS: Uterus: Uterus is retroverted and retroflexed and normal in size at 7.5 x 7.9 x 5.4 cm. The myometrium is heterogeneous. The endometrium measures 5 mm combined thickness. The previously visualized fibroid is not visualized on the current exam. Ovaries: The bilateral ovaries are not visualized. Other: No pathologic free abdominal or pelvic fluid. IMPRESSION: Retroverted retroflexed uterus with upper limits of normal endometrial thickness in a postmenopausal patient measuring 5 mm. Previously described fibroid is not seen on current exam. Bilateral ovaries are not visualized. Approved by: Jennifer Mccord M.D.,Ph.D. on 11/01/2024 at 16:12
== END ==
LOC: US 08:13
PROVIDERS: PCP Family Medicine; Referring Provider Specialist; Visit Provider Specialist
DX: N95.2 Postmenopausal atrophic vaginitis (principal); N95.1 Menopausal and female climacteric states; K21.01 Gastro-esophageal reflux disease with esophagitis, with bleeding; I10 Essential (primary) hypertension; F41.9 Anxiety disorder, unspecified; F32.A Depression, unspecified; R73.03 Prediabetes
CPT/HCPCS: 76830; 76856

== ENCOUNTER 2025-01-29 07:53 | Day surgery (SDC) | payer OTHER, SELFPAY ==
[2025-01-23 13:25] VITALS: BMI 26.1
--- NOTE | 2025-01-29 | PATH_ITS ---
[facility] Accession Number: [id number] No. of containers..02 Tissue . 01 Material submitted: . PART A: body - DIRECTED BIOPSY OF POLYPOID TISSUE PART B: endometrium - ENDOMETRIAL TISSUE . 01 Diagnosis: A. DIRECTED BIOPSY OF POLYPOID TISSUE: Benign endometrial polyp. No endometrioid intraepithelial neoplasia and no malignancy. . B. ENDOMETRIAL TISSUE: Strips of inactive glandular endometrium with associated scant stroma and with breakdown changes. Residual benign polyp fragments. No significant cytolgic atypia and no malignancy. [facility] 02/01/2025 1033 Local . 01 Electronically signed: . Wendi Fontenot MD, Pathologist NPI- [id number] . 01 Gross description: . A. Received in formalin with two patient identifiers and directed biopsy of polypoid tissue, is a 1.2 x 0.5 x 0.3 cm aggregate of mccoy tissue fragments. Filtered and entirely submitted in cassette A1. B. Received in formalin with two patient identifiers and endometrial curettings, is a 1.5 x 0.5 x 0.3 cm aggregate of red-brown, hemorrhagic tissue fragments. Entirely submitted in cassette B1. (JF:[id number]) /ROBERT 01/30/2025 2244 Local . 01 Pathologist provided ICD-10: N84.0 . 01 CPT . 904086, [id number] Specimen Comment: A courtesy copy of this report has been sent to [facility] Pathology Performed at: [address] [id number] MD Yuniel Gardiner MD Phone: [phone]
[2025-01-29 08:42] VITALS: BP 105/60; PULSE 70; RESP 16; TEMP 36.2; O2SAT 100; BMI 25.9
[2025-01-29] MEDS: LACTATED RINGERS 1,000 ML 42 ML IV (08:54)
[2025-01-29] MEDS: ACETAMINOPHEN 325 MG TABLET 975 MG PO (08:54)
--- NOTE | 2025-01-29 09:13 | PM.GYNHP.1 ---
History of Present Illness History of Present Illness Narrative: Asha Lott is a 59 year old female presents to [facility] for scheduled hysteroscopy D&C with mirena IUD placement due to postmenopausal bleeding. no complaints today. reports still continued intermittent bleeding. reviewed history-- previously on Oral progesterone and estradiol-- she then had a testosterone pellet added in 2023 and was found to be supratherapeutic and this was disocntinued. she was then restarted on the estradiol patch with oral micronized progesterone. at this time she started bleeding- bright red blood. and this has been intermittent persisting even with progesterone increased to 200mg. pelvic US reassuring- EMS- 5mm, nonenlarged uterus, normal ovaries. [facility] Medical History (Updated 01/23/25 @ 13:38 by Natalie Pickett RN) Allergy to amide type local anesthetic Postmenopausal bleeding Hypothyroid Obesity (BMI 30-39.9) Insomnia, unspecified (~04/2018) Excessive daytime sleepiness (~04/2018) Obstructive sleep apnea of adult (~04/2018) Elevated cholesterol Anxiety PVCs (premature ventricular contractions) Palpitations Constipation Type 2 diabetes mellitus Surgical History (Updated 01/23/25 @ 13:40 by Natalie Pickett RN) S/P excision of lipoma (12/04/19) History of laparoscopic cholecystectomy Family History Mother Hypertension Grandfather Heart disease Stroke Grandmother No problems noted. Social History marital status: household members: spouse and children occupational status: unemployed Smoking Status: Never smoker alcohol intake: current substance use type: marijuana Meds Home Medications and Allergies Home Medications ?Medication ?Instructions ?Recorded ?Confirmed ?Type venlafaxine 150 mg 150 mg PO DAILY 04/12/18 01/29/25 History capsule,extended release 24 hr acyclovir 800 mg tablet 800 mg PO DAILY PRN Cold Sores 11/22/19 01/29/25 History buspirone 30 mg tablet 30 mg PO ONCE 01/18/20 01/29/25 History losartan 50 mg tablet 100 mg PO DAILY 04/08/22 01/29/25 History aripiprazole 1 mg/mL oral solution mg 01/29/25 History diltiazem HCl 120 mg 120 mg PO DAILY 01/29/25 01/29/25 History capsule,extended release 24 hr rosuvastatin 5 mg tablet mg PO 01/29/25 History venlafaxine 75 mg capsule,extended 75 mg PO DAILY 01/29/25 01/29/25 History release 24 hr Allergies Allergy/AdvReac Type Severity Reaction Status Date / Time Anesthetics - Amide Type - Allergy Intermediate URTICARIA Verified 01/29/25 08:36 Select A (Anesthetics - Amide Type) chlorhexidine Allergy itchy rash Verified 01/29/25 08:36 adhesive AdvReac Mild Rash Verified 01/29/25 08:36 Exam Vital Signs (past 8 hours): - 01/29/25 08:42 Temperature 97.2 F L Pulse Rate 70 Respiratory Rate 16 Blood Pressure 105/60 Pulse Oximetry 100 Oxygen Delivery Method Room Air Oxygen Delivery Method Room Air Objective Labs Labs: Laboratory Results - last 24 hr 01/29/25 08:30 POC Whole Bld Glucose 124 H Assessment & Plan Assessment and plan (1) Postmenopausal bleeding: Status: Acute Plan discussed recommendation for hysteroscopy with dilation and curettage with placement of mirena IUD. we discussed the indication for hysteroscopy including full evaluation of the uterine cavity to rule out malignancy considering the persistent bleeding. We discussed the option for progesterone IUD-- discussed that this can be used for endometrial protection in place of oral progesterone. this may reduce her breast tenderness and improve bleeding with improved endometrial protection. we discussed the risks of procedure including bleeding, pain, infection, uterine perforation, aborted procedure in the case of uterine perforation, need for laparoscopy if concern for bleeding-- all questions answered. pateint desires to proceed with above stated case. consent forms signed anesthesia to see patient no abx indicated for this case Mirena IUD brought from clinic stock. Time-Based Coding :: [TOTAL MINUTES] spent with patient and on the chart (including review of chart, obtaining history, exam, reviewing outside data, placing orders, documenting exam and treatment plan, and counseling patient) on [DATE].
--- NOTE | 2025-01-29 09:18 | PM.PREOP ---
Pre-operative Note COVID-19 COVID-19 status: Not tested Interval Note History & Physical reviewed/Exam performed by Physician: Yes Changes to H&P: No ASA Class (for procedural sedation): II
--- NOTE | 2025-01-29 09:50 | SUR.OPER ---
Lithotomy on padded OR bed, head on pillow, arms secured on padded arm boards at <90 degrees abduction. Legs secured in padded yellow fins stirrups.
[2025-01-29 10:40] VITALS: BP 99/49; PULSE 84; RESP 18; TEMP 36.7; O2SAT 96
[2025-01-29 10:50] VITALS: BP 91/51; PULSE 77; RESP 25; O2SAT 97
[2025-01-29 10:52] VITALS: BP 107/52; PULSE 78; RESP 18; TEMP 36.4; O2SAT 98
[2025-01-29 11:11] VITALS: BP 100/58; PULSE 74; RESP 16; TEMP 36.1; O2SAT 98
--- NOTE | 2025-01-29 12:29 | PM.GYNOP.1 ---
Operative Date/Time/Diagnoses Date of procedure: 01/29/25 Time of procedure: 09:40 Pre-op diagnosis: Postmenopausal bleeding Post-op diagnosis: same (+ endometrial polyp) Procedure & Clinicians Procedure: Procedures Operation Date: 01/29/25 09:15 Actual Procedure Side Surgeon p Hysteroscopy, D&C, Mirena IUD, Myosure, polypectomy Marilee Wisdom, Indications: POstmenopausal bleeding Surgeon: Marilee Wisdom Anesthesia Type: MAC +/- Operative Notes Findings: bimanual exam-- non enlarged retroverted uterus, no adnexal massess hysteroscopic findings-- bilateral patent ostia visualized, overall normal, slightly hypervascular endometrium with an area of flat, polypoid, mass like structure on the posterior uterus in the lower segment. Closure Type: not applicable Specimen(s): endometrial curettings and endometrial polyp (polypoid appearing mass) Applied: implant(s) (Mirena IUD palced- from office stock -- LOT [id number], expiration- jan 2027) Estimated blood loss (mL): 10 Blood products transfused: none Procedure in detail: Patient was brought back to the OR with IVF and sequential compression devices in place. She was placed under general anesthesia and placed in the dorsal lithotomy position using yellow fin stirrups. She was prepped and draped in usual sterile fashion. Time out was perfomed to confirm patient and procedure. A weighted speculum was placed in the posterior vagina and right angle used to visualize the cervix. The anterior cervix was grasped with a tenaculum. The cervix was serially dilated with hegar dilators to accomodate a 6mm hysteroscope. The hysteroscope was introduced and a fluffy polypoid tissue mass was noted in the posterior endometrium. This tissue appeared concerning and a guided biopsy was desired. Unable to obtain a guided biopsy with the diagnostic hysteroscope so the Myosure scope and system was opened. The myosure hysteroscope was then reintroduced and the myosure morcellator was used to mechanically cut and remove the entire polypoid mass and expelled from the uterus. This tissue was sent to pathology labeled as polypoid mass. The hysteroscope was then removed when the entire mass was satisfactorily removed. Endometrial curette was then introduced and a gentle curettage was completed of all quadrants. Endometrial curettings were sent to pathology. THe mirena IUD was then removed from the packaged and introduced into the uterine cavity to the fundus and device released and applicator removed. The strings were cut to 2cm and tenaculum removed. Hemostasis was noted at the tenaculum sites. This concluded the procedure. patient tolerated procedure well. INstrument count correct fluid deficit <1000ml - normal saline used as fluid medium patient will return to PACU for monitoring and discharge home today Complications: none Post-operative Condition: stable Disposition: same day surgery Plan for aftercare: discharge home today pelvic rest x 2 weeks
== END 2025-01-29 11:59 | disposition home or self-care (01) ==
PROVIDERS: PCP Family Medicine; Referring Provider Family Medicine; Visit Provider Obstetrics & Gynecology
PROC: 0UDB8ZZ Extraction of Endometrium, Via Natural or Artificial Opening Endoscopic (ICD-10-PCS; CPT 58558; principal; 2025-01-29 09:15)
DX: N95.0 Postmenopausal bleeding (principal); Z30.430 Encounter for insertion of intrauterine contraceptive device; N84.0 Polyp of corpus uteri
CPT/HCPCS: 58300; 58558; 82962; C1713; J1885; J2405; J2704; J2765; J3010

== ENCOUNTER → 2025-04-17 14:11 | Outpatient (CLI) | payer OTHER, SELFPAY ==
[2025-04-17 17:26] LABS: Appearance Urine UA CLEAR; Bilirubin Urine UA NEGATIVE (NEGATIVE); Color Urine UA YELLOW; Glucose Urine UA NEGATIVE (Negative); Ketones Urine UA NEGATIVE (NEGATIVE); Leukocyte Esterase Urine UA NEGATIVE (NEGATIVE); Nitrite Urine UA NEGATIVE (Negative); Occult Blood Urine UA 1+ (Negative); Protein Urine UA NEGATIVE (Negative); Specific Gravity Urine UA 1.015 (1.000-1.035); Urobilinogen Urine UA 0.2 E.U./dL (0.2)
[2025-04-17 17:28] LABS: pH Urine UA 6.0 (4.5-8.0)
[2025-04-17 17:36] LABS: Culture Indicated Urine Cult Not Indicated
== END ==
PROVIDERS: PCP Family Medicine; Visit Provider Obstetrics & Gynecology Gynecology
DX: N95.0 Postmenopausal bleeding (principal); N39.3 Stress incontinence (female) (male)
CPT/HCPCS: 81001

== ENCOUNTER → 2025-04-17 14:27 | Outpatient (CLI) | payer OTHER, SELFPAY ==
--- NOTE | 2025-04-17 14:31 | DI.RAD.S_ITS ---
PROCEDURE: XR CLAVICLE RT INDICATIONS: Clavicular area fullness TECHNIQUE: 2 views of the clavicle were acquired. COMPARISON: None. FINDINGS: Bones: No fractures or dislocations. No suspicious bony lesions. Soft tissues: No concerning soft tissue calcifications. Possible lobular soft tissue density in the right supraclavicular region. IMPRESSION: Possible soft tissue lobular lesion in the supraclavicular region. This is not well characterized with radiographic technique. No obvious matrix. If symptoms persist, recommend further evaluation with contrast-enhanced CT or MRI. No acute bony abnormality. Dictated by: Kathryn iLndo M.D. on 04/18/2025 at 11:15 Approved by: Kathryn Lindo M.D. on 04/18/2025 at 11:17
== END ==
PROVIDERS: PCP Family Medicine; Referring Provider Family Medicine; Visit Provider Family Medicine
DX: R22.2 Localized swelling, mass and lump, trunk (principal)
CPT/HCPCS: 73000; 81001

== ENCOUNTER → 2025-04-30 14:56 | Outpatient (CLI) | payer OTHER, SELFPAY ==
--- NOTE | 2025-04-30 14:58 | DI.CT.S_ITS ---
PROCEDURE: CT UE RT W CON INDICATIONS: ABNORMAL GROWTH TECHNIQUE: After the administration of intravenous contrast, 3 mm axial sections acquired of the right shoulder, with coronal and sagittal reformats. COMPARISON: [facility], CR, XR CLAVICLE RT, 04/17/2025, 14:25. FINDINGS: Image quality: Excellent. Bones: Fiducial marker is placed over medial aspect of anterior right chest wall just above the level of right sternal clavicular joint. Moderate right sternal clavicular joint osteoarthritic changes are seen with significant joint space narrowing, subchondral sclerosis and subcortical cystic changes. There is [id number] acromioclavicular joint and glenohumeral joint osteoarthritic changes are seen with joint space narrowing and subchondral sclerosis. No suspicious intraosseous lesion. The visualized right upper ribs are intact. Soft tissues: Small amount of fluid distending right sternal clavicular joint capsule is also noted. There is no calcified intra-articular loose bodies. No discrete soft tissue mass or drainable fluid collection. Visualized right lung field is clear. No axillary lymphadenopathy by size criteria. The thyroid gland is within normal limits. No gross full-thickness rotator cuff tendon rupture. No significant rotator cuff muscle atrophy is seen on sagittal images. IMPRESSION: 1. No discrete solid mass or drainable fluid collection is noted at the site of concern. 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 [id number] right acromioclavicular joint and glenohumeral joint osteoarthritis. No suspicious intraosseous lesion. 2. No gross full-thickness rotator cuff tendon rupture or significant rotator cuff muscle atrophy. No axillary lymphadenopathy. No lymphadenopathy is seen in visualized lower neck soft tissue. Visualized right lung field is clear. Dictated by: Selvin Cotton M.D. on 04/30/2025 at 16:20 Approved by: Selvin Cotton M.D. on 04/30/2025 at 16:24
[2025-04-30 15:30] LABS: Estimated Glomerular Filt Rate > 60 mL/min (>60)
== END ==
PROVIDERS: PCP Family Medicine; Referring Provider Family Medicine; Visit Provider Family Medicine
DX: D49.2 Neoplasm of unspecified behavior of bone, soft tissue, and skin (principal); M19.011 Primary osteoarthritis, right shoulder
CPT/HCPCS: 36415; 73201; 82565; Q9967